=== PATIENT | male | born 1985 | race Two or more races ===

== ENCOUNTER 2017-11-18 00:40 | Emergency (ER) | payer SELFPAY ==
[2017-11-18 00:54] VITALS: BP 128/81; PULSE 88; TEMP 98.8; BMI 28.0
[2017-11-18 01:44] LABS: BASO % 0.5 % (0-2.0); EOS % 1.1 % (0-4.5); HEMATOCRIT 37.6 % (35.4-49); HEMOGLOBIN 13.1 GM/dL (11.7-16.9); LYMPH % 21.7 % (8-40); MCH 30.4 pg (25.7-33.7); MCHC 34.7 g/dl (32.0-35.9); MEAN CELL VOLUME 87.6 fl (80-96); MEAN PLT VOLUME 9.4 fl (7.5-11.1); MONO % 7.2 % (3.8-10.2); NEUT % 69.5 % (42.8-82.8); PLATELET COUNT 225 K/MM3 (134-434); WHITE BLOOD COUNT 6.8 K/mm3 (4.0-10.0)
--- NOTE | 2017-11-18 02:04 | PDOC ---
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 No calf pain swelling no DVT risk factors no recent travel no hemoptysis no surgery no cancer vital signs stable Symptoms are mild intermittent occur in the evening after being on his feet all day. There is no associated chest pain shortness of breath Past History - Past Medical History Allergies/Adverse Reactions: Allergies Allergy/AdvReac Type Severity Reaction Status Date / Time No Known Allergies Allergy Unverified 11/18/17 00:41 Home Medications: Ambulatory Orders NK [No Known Home Medication] 11/18/17 COPD: No - Suicide/Smoking/Psychosocial Hx Smoking History: Current every day smoker Number of Cigarettes Smoked Daily: 20 Information on smoking cessation initiated: Yes 'Breaking Loose' booklet given: 11/18/17 Review of Systems - Review of Systems Comments:: 11/18/17 02:00 ROS: A complete review of 10 out of 10 review of systems is taken and is negative apart from what is previously mentioned below and in the HPI. *Physical Exam - Vital Signs Last Vital Signs Temp Pulse Resp BP Pulse Ox 98.8 F 88 16 128/81 100 11/18/17 00:43 11/18/17 00:43 11/18/17 00:43 11/18/17 00:43 11/18/17 00:43 - Physical Exam Comments: 11/18/17 02:01 Vitals: Triage Vital signs reviewed General Appearance: no acute distress, well nourished well developed, Head: Atraumatic, Chest Wall: Nontender Cardiac: Regular rate and rhythym, no murmurs, no rubs, no gallops, Lungs: Clear to auscultation bilateral, good air movement bilaterally, Abdomen: Soft, non distended, normal bowel sounds, non tender to palpation Extremities: Full range of motion to all extremities, no cyanosis, clubbing, or edema, mild swelling per patient to his ankles and midfoot, positive varicose veins and evidence of early peripheral vascular disease to bilateral lower extremities, no calf pain or calf swelling, no pitting edema. Skin: Warm and dry, no rashes or lesions, no rash, no petechiae Neuro: Strength intact to all extremities, Sensation intact to all extremities, gait normal Psych: normal mood, normal affect ED Treatment Course - LABORATORY CBC & Chemistry Diagram: 11/18/17 01:07 11/18/17 01:07 - ADDITIONAL ORDERS Additional order review: 11/18/17 01:07 RBC 4.30 MCV 87.6 MCHC 34.7 RDW 13.0 MPV 9.4 Neutrophils % 69.5 Lymphocytes % 21.7 Monocytes % 7.2 Eosinophils % 1.1 Basophils % 0.5 Medical Decision Making - Medical Decision Making 11/18/17 02:03 Several month two-year history of intermittent ankle pain and swelling usually at the end of day. Patient appears to have poor circulation and examination Does not have primary care provider No concern at this time for DVT given symmetry duration of symptoms and history of symptoms being worse after being on his feet all day Negative for DVT based on well's criteria. Patient requesting blood work as he has not had blood work done in a long period of time. If creatinine within normal limits patient can follow-up at the [facility] I recommended compression stockings rest elevation and cigarettes a station to help with his symptomatology. Also patient has some ear wax in his left ear recommended D Brox Findings, need for follow-up and strict return instructions discussed with patient. *DC/Admit/Observation/Transfer Diagnosis at time of Disposition: Ankle swelling Qualifiers: Laterality: unspecified laterality Qualified Code(s): M25.473 - Effusion, unspecified ankle - Discharge Dispostion Disposition: HOME Condition at time of disposition: Stable Decision to Admit order: No - Referrals Referrals: [facility] [place] [facility] [place] [Provider Group] - Patient Instructions Printed Discharge Instructions: Serious Ways to Stop Smoking Additional Instructions: Please try to stop smoking cigarettes. Purchase a pair of ankle compression stockings where at all times during the day in the evenings keep your feet elevated to help her circulation Follow-up in 1-2 days at the [facility] you can call the number provided to schedule an appointment Return to ED for any severe worsening symptoms including chest pain shortness of breath or for any concerns. - Post Discharge Activity
[2017-11-18 02:17] LABS: ANION GAP 4 MMOL/L (8-16); BLOOD UREA NITROGEN 12 mg/dL (7-18); CALCIUM 8.5 mg/dL (8.5-10.1); CHLORIDE 104 mmol/L (98-107); CO2 29 mmol/L (21-32); CREATININE 0.7 mg/dL (0.55-1.3); GLUCOSE,RANDOM 90 mg/dL (74-106); POTASSIUM 4.2 mmol/L (3.5-5.1); SODIUM 137 mmol/L (136-145)
== END 2017-11-18 02:22 | disposition home or self-care (01) ==
LOC: FER 00:40
DX: M25.473 Effusion, unspecified ankle (principal); F17.210 Nicotine dependence, cigarettes, uncomplicated
CPT/HCPCS: 36415; 80048; 85025; 99283-25